=== PATIENT | female | born 1975 | race Caucasian/White ===

== ENCOUNTER 2019-07-14 21:12 | Emergency (ER) | payer BC, OTHER ==
--- NOTE | 2019-07-14 21:23 | EDM.PDOC ---
ED HPI GENERAL MEDICAL PROBLEM - General Chief Complaint: Trauma Stated Complaint: MEDICAL VIA [facility] Time Seen by Provider: 07/14/19 21:15 Source of Information: Reports: Patient, EMS, Old Records History Limitations: Reports: No Limitations - History of Present Illness INITIAL COMMENTS - FREE TEXT/NARRATIVE: 43 yo female fell off her horse about 7 pm today. She was able to walk home and sit in a chair, but then stiffened up and was not able to get up. EMS was called and they transported with stable vitals and a complaint of R low back pain. EMS gave Toradol and fentanyl before arrival. Onset: Today Onset Date: 07/14/19 Onset Time: 21:00 Duration: Hour(s): (2), Constant Location: Reports: Back (R low back) Quality: Reports: Ache Severity: Moderate Improves with: Reports: Immobilization, Medication Worsens with: Reports: Movement Context: Reports: Trauma Associated Symptoms: Reports: No Other Symptoms Treatments [employer]PERATIONS: Reports: Other (see below) (Toradol and fentanyl) - Related Data Allergies Allergy/AdvReac Type Severity Reaction Status Date / Time No Known Allergies Allergy Verified 07/14/19 21:21 Home Meds: Home Meds Cetirizine [ZyrTEC] 10 mg PO DAILY 07/14/19 [History] Venlafaxine HCl [Venlafaxine ER] 75 mg PO DAILY 07/14/19 [History] ED ROS GENERAL - Review of Systems Review Of Systems: ROS reveals no pertinent complaints other than HPI. Constitutional: Reports: No Symptoms HEENT: Reports: No Symptoms Respiratory: Reports: No Symptoms Cardiovascular: Reports: No Symptoms GI/Abdominal: Reports: No Symptoms : Reports: No Symptoms Musculoskeletal: Reports: Back Pain, Muscle Pain, Muscle Stiffness. Denies: Neck Pain, Shoulder Pain, Arm Pain, Hand Pain, Leg Pain, Foot Pain, Joint Pain, Joint Swelling Skin: Reports: No Symptoms Neurological: Reports: No Symptoms Psychiatric: Reports: No Symptoms ED EXAM,LOWER BACK PAIN/INJURY - Physical Exam Exam: See Below Exam Limited By: No Limitations General Appearance: Alert, WD/WN, No Apparent Distress Eye Exam: Bilateral Eye: Normal Inspection Ears: Normal External Exam, Normal Canal, Hearing Grossly Normal, Normal TMs Nose: Normal Inspection, No Blood Throat/Mouth: Normal Inspection, Normal Lips, Normal Oropharynx, Normal Voice, No Airway Compromise Head: Atraumatic, Normocephalic Neck: Normal Inspection Respiratory/Chest: No Respiratory Distress, Lungs Clear, Normal Breath Sounds, No Accessory Muscle Use, Chest Non-Tender Cardiovascular: Regular Rate, Rhythm, No Edema GI/Abdominal: Normal Bowel Sounds, Soft, Non-Tender, No Distention Back Exam: Normal Inspection, Paraspinal Tenderness (R lumbar). No: CVA Tenderness (R), CVA Tenderness (L) Extremities: Normal Inspection, Normal Range of Motion, Non-Tender, No Pedal Edema Neurological: Alert, Normal Mood/Affect, CN II-XII Intact, No Motor/Sensory Deficits, Oriented x 3 Psychiatric: Normal Affect, Normal Mood Skin Exam: Warm, Dry, Intact, Normal Color, No Rash Course - Vital Signs Last Recorded V/S: Last Vital Signs Temp 35.7 C 07/14/19 21:56 Pulse 65 07/14/19 21:56 Resp 18 07/14/19 21:56 BP 124/67 07/14/19 21:56 Pulse Ox 100 07/14/19 21:56 - Orders/Labs/Meds Orders: Active Orders 24 hr Category Date Time Status Pelvis 1V or 2V [CR] Stat Exams 07/14/19 21:17 Taken - Radiology Interpretation Free Text/Narrative:: lumbar spine [id number]: Fracture of the right L4 transverse process. Dictated by Floyd Noel MD @ 07/14/2019 10:13:46 PM pelvis [id number]: No acute osseous abnormality in the pelvis. Dictated by Floyd Noel MD @ 07/14/2019 10:15:36 PM Departure - Departure Time of Disposition: 22:30 Disposition: Home, Self-Care 01 Condition: Fair Clinical Impression: Fracture of transverse process of lumbar vertebra Qualifiers: Encounter type: initial encounter Fracture type: closed Qualified Code(s): S32.009A - Unspecified fracture of unspecified lumbar vertebra, initial encounter for closed fracture - Discharge Information *PRESCRIPTION DRUG MONITORING PROGRAM REVIEWED*: No *COPY OF PRESCRIPTION DRUG MONITORING REPORT IN PATIENT JANAE: No Instructions: Transverse Process Fracture Referrals: PCP,None [Primary Care Provider] - Forms: ED Department Discharge Additional Instructions: Activity as tolerated. [place] as directed if acetaminophen is not strong enough to control your pain. Take ibuprofen 600 mg every 6 hrs with food for added relief, next dose after midnight. Take Flexeril every 8 hrs for muscle tightness. Heat or cold may be used to affected area. Recheck in the clinic this next week. - My Orders Last 24 Hours: My Active Orders 07/14/19 21:17 Pelvis 1V or 2V [CR] Stat - Assessment/Plan Last 24 Hours: My Active Orders 07/14/19 21:17 Pelvis 1V or 2V [CR] Stat
--- NOTE | 2019-07-14 22:15 | CRLCR ---
Indication: Fell off horse. Right low back pain. Technique: Lumbar spine three views. Comparison: None. Findings: There is an acute minimally displaced fracture involving the right L4 transverse process. No additional evidence of fracture. No malalignment. Mild degenerative changes at L5-S1. Paraspinal soft tissues as imaged are unremarkable. Impression: Fracture of the right L4 transverse process. Dictated by Floyd Noel MD @ 07/14/2019 10:13:46 PM Dictated by: Floyd Noel MD @ 07/14/2019 22:13:58 (Electronically Signed)
--- NOTE | 2019-07-14 22:18 | CRLCR ---
Indication: Fell off horse. Right low back pain. Technique: Pelvis one-view. Comparison: Lumbar spine same day. Findings: Right L4 transverse process fractures again demonstrated. No acute fracture or dislocation in the pelvis. Minimal/early degenerative changes left hip. Soft tissues as imaged are unremarkable. Impression: No acute osseous abnormality in the pelvis. Dictated by Floyd Noel MD @ 07/14/2019 10:15:36 PM Dictated by: Floyd Noel MD @ 07/14/2019 22:15:45 (Electronically Signed)
== END 2019-07-14 22:51 | disposition home or self-care (01) ==
LOC: JP.ED 21:12
DX: S32.048A Other fracture of fourth lumbar vertebra, initial encounter for closed fracture (principal); V80.010A Animal-rider injured by fall from or being thrown from horse in noncollision accident, initial encounter; Y92.009 Unspecified place in unspecified non-institutional (private) residence as the place of occurrence of the external cause
CPT/HCPCS: 72100; 72170; 99283-25